=== PATIENT | female | born 1945 | race Caucasian/White ===

== ENCOUNTER 2016-07-07 11:01 | Emergency (ER) | payer OTHER ==
[~2016-07-07] VITALS: Ht 152.4 cm; Wt 86.0 kg
[2016-07-07 11:02] VITALS: BP 194/87; PULSE 72; RESP 16; TEMP 97.9; O2SAT 98
[2016-07-07] MEDS ORDERED: KETOROLAC TROMETHAMINE 60 MG/2 ML (IM) VIAL IM ONE (12:30)
--- NOTE | 2016-07-07 12:33 | PD ---
HPI Chief Complaint: Pain: Acute or Chronic Time Seen by Provider: 12:30 Travel History International Travel<30 days: No Contact w/Intl Traveler<30days: No Traveled to known affect area: No History of Present Illness HPI 70-year-old female presents to the emergency department for evaluation of right ankle pain that started this morning. Patient states this occurred last year as well. She states that she had elevated uric acid levels at that time he was diagnosed with gout. She states this pain is similar to previous pain. She denies any fevers or chills. She denies a traumatic injury. She states this is the same location as her last gouty attack. Patient reports history of high diabetes and hypertension. She denies any kidney disease. She has no other complaints. PFSH Past Medical History Diabetes: Yes Patient Takes Glucophage: No Gout: Yes Past Surgical History Surgical History: No Previous Surgery Social History Alcohol Use: No Tobacco Use: No Substance Use: No Allergies-Medications (Allergen,Severity, Reaction): Coded Allergies: No Known Allergies (Unverified , 07/07/16) Reported Meds & Prescriptions Reported Meds & Active Scripts Active Lortab (Hydrocodone-Acetaminophen) 5-325 Mg Tab 1 Tab PO Q6H PRN Reported Fenofibrate 120 Mg Tab Unknown Dose PO DAILY Valsartan 80 Mg Tab Unknown Dose PO DAILY Lovastatin 40 Mg Tab Unknown Dose PO DAILY Levothyroxine (Levothyroxine Sodium) 25 Mcg Tab Unknown Dose PO DAILY Metoprolol Tartrate 25 Mg Tab Unknown Dose PO DAILY Novolog Inj (Insulin Aspart) 1,000 Unit/10 Ml Vial 0 SQ DIRECTED Sliding Scale as directed. Levemir Inj (Insulin Detemir) 1,000 unit/ 10 ML Vial 55 Units SQ HS Do not mix with any other Insulin. Review of Systems Except as stated in HPI: all other systems reviewed are Neg Physical Exam Narrative GENERAL: Well-developed well-nourished female patient, ambulatory. Afebrile. SKIN: Warm and dry. No erythema or warmth over right ankle. HEAD: Normocephalic. Atraumatic. EYES: No scleral icterus. No injection or drainage. NECK: Supple, trachea midline. No JVD or lymphadenopathy. CARDIOVASCULAR: Regular rate and rhythm without murmurs, gallops, or rubs. Right pedal pulse 2+. RESPIRATORY: Breath sounds equal bilaterally. No accessory muscle use. Lungs sounds are clear to auscultation. GASTROINTESTINAL: Abdomen soft, non-tender, nondistended. MUSCULOSKELETAL: No cyanosis, or edema. Patient has tenderness over right lateral ankle. She has limited flexion and extension, but can move the joint without difficulty. BACK: Nontender without obvious deformity. No CVA tenderness. Data Data Last Documented VS Vital Signs Date Time Temp Pulse Resp B/P Pulse Ox O2 Delivery O2 Flow Rate FiO2 07/07/16 11:02 97.9 72 16 194/87 98 Room Air Orders Ketorolac Inj (Toradol Inj) (07/07/16 12:30) Ankle, Complete ([id number]) (07/07/16 ) Acetamin-Hydrocod 325-5 Mg ([place] 5-325 (07/07/16 14:00) Splint Or Brace Apply/Monitor (07/07/16 13:55) MDM Medical Decision Making Medical Screen Exam Complete: Yes Emergency Medical Condition: Yes Medical Record Reviewed: Yes Interpretation(s) Last Impressions Ankle X-Ray 07/07/16 0000 Signed Impressions: Service Date/Time: Thursday, July 07, 2016 12:48 - CONCLUSION: No evidence of acute injury.. Martha Meehan MD Differential Diagnosis Gouty arthritis versus sprain versus fracture Narrative Course 70-year-old female presents to the emergency department for evaluation of right ankle pain that started this morning without injury. Patient reports history of gout and states these symptoms are similar. There is no evidence of septic joint on exam. X-ray of the right ankle is ordered and pending. Patient is given Toradol 60 mg IM. X-ray of the right ankle shows no evidence of acute abnormality. Patient was placed in an [place] bandage. She will be given additional Lortab 5/25 mg for pain. Patient was offered crutches, but she declines. Patient is instructed to follow up with her primary care physician. She is instructed on emergent conditions to return immediately for. Patient verbalizes agreement and understanding. She'll be discharged with a prescription for indomethacin and Lortab. Diagnosis Primary Impression: Gout of ankle Qualified Code: M10.9 - Acute gout of right ankle, unspecified cause Referrals: Primary Care Physician call for appointment Patient Instructions: General Instructions Additional Instructions: Take indomethacin as instructed as needed for pain. Only take Lortab for severe pain as indomethacin is the treatment for gout. Lortab can make you drowsy so do not drive after taking. Ice for 20 minutes 4-5 times daily. Merrill bandage as needed for support. Follow-up with your primary care physician. Return to the emergency department for any acute worsening of symptoms. Med/Other Pt SpecificInfo: Prescription(s) given Scripts Indomethacin 50 Mg Cap50 Mg PO TID PRN (PAIN SCALE 1 TO 10) #21 CAP Ref 0 Take with food, milk, or antacids to decrease stomach adverse effects. Prov:Leny Sanots 07/07/16 Hydrocodone-Acetaminophen (Lortab)5-325 Mg Tab1 Tab PO Q6H PRN (PAIN) #10 TAB Ref 0 Prov:Cori Pollack MD 07/07/16 Disposition: 01 DISCHARGE HOME Condition: Stable Leny Santos Jul 07, 2016 12:33
[2016-07-07] MEDS ORDERED: LEVEMIR SQ (12:58)
[2016-07-07] MEDS ORDERED: NOVOLOGP2 SQ (12:58)
[2016-07-07] MEDS ORDERED: LOVA40TA PO (12:58)
[2016-07-07] MEDS ORDERED: FENO1TAB39 PO (12:58)
[2016-07-07] MEDS ORDERED: VALS1TAB64 PO (12:58)
[2016-07-07] MEDS ORDERED: METO25TA3 PO (12:58)
[2016-07-07] MEDS ORDERED: LEVO25TA4 PO (12:58)
--- NOTE | 2016-07-07 13:24 | RADRPT ---
EXAM DATE/TIME: 07/07/2016 12:48 [facility] COMPARISON: No previous studies available for comparison. INDICATIONS : Right ankle pain. MEDICAL HISTORY : Diabetes mellitus type II. Hypertension Gout. SURGICAL HISTORY : None. ENCOUNTER: Initial ACUITY: 1 day PAIN SCORE: 9/10 LOCATION: Right ankle. FINDINGS: Three view exam was performed of the right ankle. The bony structures are in normal alignment. No e vidence of fracture, dislocation, or focal soft tissue swelling. There are large enthesophytes identi fied along the posterior aspect of the calcaneus and along the plantar aponeurosis insertion. There i s diffuse soft tissue prominence. The ankle mortise is intact. No radiopaque foreign bodies are seen . Bony mineralization is normal. CONCLUSION: No evidence of acute injury.. Martha Meehan MD on July 07, 2016 at 13:21 Board Certified Radiologist. This report was verified electronically.
[2016-07-07] MEDS ORDERED: HYDR-3533 PO ×2 (13:48→13:49)
[2016-07-07] MEDS ORDERED: INDO50CA PO (13:58)
[2016-07-07] MEDS ORDERED: ACETAMINOPHEN/HYDROcodone 325 MG/5 MG TAB PO ONE (14:00)
== END 2016-07-07 14:14 | disposition home or self-care (01) ==
LOC: NEPB 11:01
DX: M10.9 Gout, unspecified (principal); E11.9 Type 2 diabetes mellitus without complications; I10 Essential (primary) hypertension; Z79.4 Long term (current) use of insulin; Z87.39 Personal history of other diseases of the musculoskeletal system and connective tissue
CPT/HCPCS: 73610; 96372; 99283; J1885